=== PATIENT | female | born 1985 | race Caucasian/White ===

== ENCOUNTER 2017-10-26 00:03 | Emergency (ER) | payer SELFPAY ==
[2017-10-26] VITALS (8 sets, daily range): BP systolic 106–134; BP diastolic 68–94; PULSE 83–107; RESP 12–20; TEMP 36.4–37; O2SAT 97–99; BMI 25.9
--- NOTE | 2017-10-26 00:24 | CT_ITS ---
CT head/brain wo con HISTORY: ITS.REASON: siezure ORDERING PHYSICIAN: Guicho Harris MD PATIENT AGE: 32 years COMPARISON: None TECHNIQUE: Axial images obtained without contrast. Brain and bone windows reviewed. FINDINGS: No midline shift, mass effect, intracranial hemorrhage, hydrocephalus, or extra-axial fluid collection is evident. The calvarium has an unremarkable appearance. No mastoid effusion. There is mucosal thickening of the ethmoid sinuses and sphenoid sinus. IMPRESSION: 1. No acute intracranial findings. 2. Sinus disease
[2017-10-26 00:39] LABS: Microscopic, Urine URINE MICROSCOPIC (MICROSCOPIC)
[2017-10-26 00:41] LABS: Appearance,Urine CLEAR (Clear); Bilirubin,Urine Negative (Negative); Blood, Urine Negative (Negative); Color,Urine YELLOW (Yellow); Glucose,Urine (UA) Negative (Negative); Ketones,Urine Negative (Negative); Leukocyte Esterase,Urine Negative (Negative); Nitrate,Urine Negative (Negative); PH,Urine 5.5 (5.0-8.5); Protein,Urine Negative (Negative); Specific Gravity, Urine <= 1.005 (1.005-1.030); Urobilinogen,Urine 0.2 EU/dl (0.2)
[2017-10-26 00:46] LABS: Amorphous Sediment,Urine Trace /lpf; Basophils % 0.5 % (0.1-2.0); Eosinophils # 0.2 K/mm3 (0.0-0.4); Eosinophils % 3.3 % (0.1-12.0); Hematocrit 44.2 % (37.0-47.0); Hemoglobin 13.7 g/dL (12.2-16.2); Lymphocytes # 3.3 K/mm3 (0.7-4.5); Lymphocytes % 51.9 K/mm3 (10-50); Mean Corpuscular Hemoglobin 25.9 pg (27.0-31.2); Mean Corpuscular Volume 83.5 fl (81-99); Mean Platelet Volume 9.6 fl (7.4-10.4); Monocytes # 0.4 K/mm3 (0.1-1.0); Monocytes % 6.8 % (1.7-9.3); Neutrophils # 2.4 K/mm3 (1.8-7.8); Neutrophils % 37.6 % (37.0-80.0); Platelet Count 86 K/mm3 (142-424); Red Cell Distribution Width 13.5 % (11.5-17.5); White Blood Count 6.4 K/mm3 (4.8-10.8)
[2017-10-26 00:48] LABS: Amphetamine/Metha Screen,Urine Negative ng/mL (<1000); Barbiturates Screen,Urine Negative ng/mL (<200); Benzodiazepines Screen,Urine Negative ng/mL (200); Cannabinoid Screen,Urine Negative ng/mL (<50); Cocaine Screen,Urine Negative ng/g (<300); Methadone Screen,Urine Negative ng/mL (<300); Opiate Screen,Urine Negative ng/mL (<300); Phencyclidine Screen,Urine Negative ng/mL (<25)
[2017-10-26 00:50] LABS: MANUAL DIFFERENTIAL MANUAL DIFFERENTIAL (MANUAL DIFF)
[2017-10-26 00:59] LABS: Alanine Aminotransferase 87 U/L (12-78); Albumin/Globulin Ratio 0.9 (1.1-1.8); Alkaline Phosphatase 67 U/L (46-116); Amylase 56 U/L (25-125); Anion Gap 16.3 mEq/L (5-15); Aspartate Amino Transferase 70 U/L (15-37); Bilirubin,Total 0.5 mg/dL (0.2-1.0); Blood Urea Nitrogen 12 mg/dL (7-18); Calcium 8.7 mg/dL (8.5-10.1); Carbon Dioxide 25 mmol/L (21.0-32.0); Chloride 100 mmol/L (98-107); Creatinine Clearance Estimated 91 mL/min (0-300); Creatinine,Serum 0.89 mg/dL (0.55-1.02); Estimated Glomerular Filt Rate 73 ml/min (>60); Ethyl Alcohol 95 mg/dL (0-99); GFR (African American) 88 ML/MIN (>60); Globulin 4.4 gm/dl (1.3-3.2); Glucose 91 mg/dL (74-106); Lipase 98 u/L (73-393); Potassium 3.3 mmoL/L (3.5-5.1); Sodium 138 mmol/L (136-145); Total Protein,Serum 8.4 gm/dL (6.4-8.2)
[2017-10-26 01:18] LABS: Eosinophils % 2 % (0-3); Lymphocytes % 55 % (10-50); Monocytes % 5 % (2-9); Neutrophils % 34 % (42-76); Platelet Estimate Slight Decrease; Total Cells Counted 100
[2017-10-26 01:19] LABS: Hypochromasia 1+; Polychromasia 1+
--- NOTE | 2017-10-26 01:55 | HMH.EDSEIZ ---
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 The time I documented below is in addition to time spent performing reported procedures but includes the following listed in this critical care notation. Medical Decision Making - Medical Records Medical records reviewed: Yes: I reviewed the patient's medical records. Vital Signs: 10/26/17 00:05 10/26/17 00:06 10/26/17 00:35 Temperature 97.6 F Temperature Source Oral Pulse Rate [Right Radial] 95 H 107 H 94 H Respiratory Rate 20 12 Blood Pressure [Right Arm] 128/85 134/94 132/85 Blood Pressure Mean [Right Arm] 99 107 100 Blood Pressure Source [Right Arm] Automatic Cuff Automatic Cuff Automatic Cuff Blood Pressure Position [Right Arm] Supine Sitting Supine 02 Sat by Pulse Oximetry 97 98 98 Oxygen Delivery Method Room Air 10/26/17 01:05 10/26/17 01:12 10/26/17 01:30 Temperature Temperature Source Pulse Rate [Right Radial] 101 H 101 H 83 Respiratory Rate 14 Blood Pressure [Right Arm] 122/82 122/82 106/69 Blood Pressure Mean [Right Arm] 95 95 81 Blood Pressure Source [Right Arm] Automatic Cuff Automatic Cuff Automatic Cuff Blood Pressure Position [Right Arm] Supine Supine Supine 02 Sat by Pulse Oximetry 97 98 97 Oxygen Delivery Method Room Air - Lab Data Lab results reviewed: Yes: I reviewed the patient's lab results. Lab Results 10/26/17 00:30: Urine Color Yellow, Urine Appearance Clear, Urine pH 5.5, Ur Specific [place] <= 1.005, Urine Protein Negative, Urine Glucose (UA) Negative, Urine Ketones Negative, Urine Blood Negative, Urine Nitrate Negative, Urine Bilirubin Negative, Urine Urobilinogen 0.2, Ur Leukocyte Esterase Negative, Amorphous Sediment Trace 10/26/17 00:30: WBC 6.4, RBC 5.30, Hgb 13.7, Hct 44.2, MCV 83.5, MCH 25.9 L, MCHC 31.0 L, RDW 13.5, Plt Count 86 L, MPV 9.6, Neut % (Auto) 37.6, Lymph % (Auto) 51.9 H, [place] % (Auto) 6.8, Eos % (Auto) 3.3, Baso % (Auto) 0.5, Neut # (Auto) 2.4, Lymph # (Auto) 3.3, [place] # (Auto) 0.4, Eos # (Auto) 0.2, Baso # (Auto) 0.0, Total Counted 100, Neutrophils % (Manual) 34 L, Band Neutrophils % 4.0, Lymphocytes % (Manual) 55 H, Monocytes % (Manual) 5, Eosinophils % (Manual) 2, Platelet Estimate Slight decrease, Polychromasia 1+, Hypochromasia 1+ 10/26/17 00:30: Sodium 138, Potassium 3.3 L, Chloride 100, Carbon Dioxide 25, Anion Gap 16.3 H, BUN 12, Creatinine 0.89, Estimated Creat Clear 91, Estimated GFR 73, Est GFR ( Amer) 88, Glucose 91, Calcium 8.7, Total Bilirubin 0.5, AST 70 H, ALT 87 H, Alkaline Phosphatase 67, Total Protein 8.4 H, Albumin 4.0, Globulin 4.4 H, Albumin/Globulin Ratio 0.9 L, Amylase 56, Lipase 98, Plasma/Serum Alcohol 95 10/26/17 00:30: Urine Opiates Screen Negative, Ur Barbituates Screen Negative, Ur Phencyclidine Scrn Negative, Ur Amphetamines Screen Negative, U Methamphetamines Scrn Negative, U Benzodiazepines Scrn Negative, Urine Cocaine Screen Negative, U Marijuana (THC) Screen Negative Result diagrams: 10/26/17 00:30 10/26/17 00:30 Orders (Tests/Meds): ORDERS Category Date Time Status CT head/brain wo con Stat Cat Scan 10/26/17 00:24 Taken - CT Data CT Scan: Head Time Received: 02:[address] Reviewed: Yes: I have viewed the radiologist's interpretation Preliminary Findings: Abnormal (sinusitis) - Aquilino Inquiry Pt receiving controlled subst
--- NOTE | 2017-10-26 02:02 | ED_ITS ---
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 The time I documented below is in addition to time spent performing reported procedures but includes the following listed in this critical care notation. Medical Decision Making - Medical Records Medical records reviewed: Yes: I reviewed the patient's medical records. Vital Signs: 10/26/17 00:05 10/26/17 00:06 10/26/17 00:35 Temperature 97.6 F Temperature Source Oral Pulse Rate [Right Radial] 95 H 107 H 94 H Respiratory Rate 20 12 Blood Pressure [Right Arm] 128/85 134/94 132/85 Blood Pressure Mean [Right Arm] 99 107 100 Blood Pressure Source [Right Arm] Automatic Cuff Automatic Cuff Automatic Cuff Blood Pressure Position [Right Arm] Supine Sitting Supine 02 Sat by Pulse Oximetry 97 98 98 Oxygen Delivery Method Room Air 10/26/17 01:05 10/26/17 01:12 10/26/17 01:30 Temperature Temperature Source Pulse Rate [Right Radial] 101 H 101 H 83 Respiratory Rate 14 Blood Pressure [Right Arm] 122/82 122/82 106/69 Blood Pressure Mean [Right Arm] 95 95 81 Blood Pressure Source [Right Arm] Automatic Cuff Automatic Cuff Automatic Cuff Blood Pressure Position [Right Arm] Supine Supine Supine 02 Sat by Pulse Oximetry 97 98 97 Oxygen Delivery Method Room Air - Lab Data Lab results reviewed: Yes: I reviewed the patient's lab results. Lab Results 10/26/17 00:30: Urine Color Yellow, Urine Appearance Clear, Urine pH 5.5, Ur Specific [place] <= 1.005, Urine Protein Negative, Urine Glucose (UA) Negative, Urine Ketones Negative, Urine Blood Negative, Urine Nitrate Negative, Urine Bilirubin Negative, Urine Urobilinogen 0.2, Ur Leukocyte Esterase Negative, Amorphous Sediment Trace 10/26/17 00:30: WBC 6.4, RBC 5.30, Hgb 13.7, Hct 44.2, MCV 83.5, MCH 25.9 L, MCHC 31.0 L, RDW 13.5, Plt Count 86 L, MPV 9.6, Neut % (Auto) 37.6, Lymph % ( Auto) 51.9 H, [place] % (Auto) 6.8, Eos % (Auto) 3.3, Baso % (Auto) 0.5, Neut # ( Auto) 2.4, Lymph # (Auto) 3.3, [place] # (Auto) 0.4, Eos # (Auto) 0.2, Baso # (Auto ) 0.0, Total Counted 100, Neutrophils % (Manual) 34 L, Band Neutrophils % 4.0, Lymphocytes % (Manual) 55 H, Monocytes % (Manual) 5, Eosinophils % (Manual) 2, Platelet Estimate Slight decrease, Polychromasia 1+, Hypochromasia 1+ 10/26/17 00:30: Sodium 138, Potassium 3.3 L, Chloride 100, Carbon Dioxide 25, Anion Gap 16.3 H, BUN 12, Creatinine 0.89, Estimated Creat Clear 91, Estimated GFR 73, Est GFR ( Amer) 88, Glucose 91, Calcium 8.7, Total Bilirubin 0.5 , AST 70 H, ALT 87 H, Alkaline Phosphatase 67, Total Protein 8.4 H, Albumin 4.0 , Globulin 4.4 H, Albumin/Globulin Ratio 0.9 L, Amylase 56, Lipase 98, Plasma/ Serum Alcohol 95 10/26/17 00:30: Urine Opiates Screen Negative, Ur Barbituates Screen Negative, Ur Phencyclidine Scrn Negative, Ur Amphetamines Screen Negative,
== END 2017-10-26 02:55 | disposition home or self-care (01) ==
PROVIDERS: Emergency Provider Emergency Medicine
DX: G40.909 Epilepsy, unspecified, not intractable, without status epilepticus (principal); F14.10 Cocaine abuse, uncomplicated; F15.10 Other stimulant abuse, uncomplicated; F11.10 Opioid abuse, uncomplicated; Z79.899 Other long term (current) drug therapy; Z91.128 Patient's intentional underdosing of medication regimen for other reason
CPT/HCPCS: 70450; 80053; 80305; 81001; 82150; 83690; 85007; 85025; 96365; 99283

== ENCOUNTER 2018-12-24 13:47 | Emergency (ER) | payer SELFPAY ==
[2018-12-24] VITALS (10 sets, daily range): BP systolic 93–156; BP diastolic 59–96; PULSE 85–97; RESP 18–20; TEMP 36.9–37; O2SAT 90–99; BMI 25.0
--- NOTE | 2018-12-24 14:23 | CT_ITS ---
CT head/brain wo con HISTORY: Multiple seizures ITS.REASON: multiple seizures ORDERING PHYSICIAN: Guicho Grace MD PATIENT AGE: 33 years COMPARISON: 06/23/2018 TECHNIQUE: Axial images obtained without contrast. Brain and bone windows reviewed. All CT scans at the facility use one or more dose reduction, viz: automated exposure control, ma/kV adjustment per patient size (including targeted exams where dose is matched to indication, i.e. head), or iterative reconstruction technique. FINDINGS: No midline shift, mass effect, intracranial hemorrhage, hydrocephalus, or extra-axial fluid collection is evident. The calvarium has an unremarkable appearance. No mastoid effusion. There is mild mucosal thickening of the ethmoid sinuses. IMPRESSION: No acute intracranial findings
--- NOTE | 2018-12-24 14:24 | HMH.EDGENADL ---
ED Disposition Clinical Impression: Recurrent seizures Disposition: Home, Self-Care Condition on Discharge: Good Instructions: Seizure Disorder -- Adult Referrals: Provider,Referral, [Primary Care Provider] - Time of Disposition: 18:02 - Critical Care Critical Care Time: No Attestation: On 12/24/18, the high probability of a clinically significant, sudden or life threatening deterioration of the following system(s) required my full and direct attention, intervention and personal management. The time I documented below is in addition to time spent performing reported procedures but includes the following listed in this critical care notation. Medical Decision Making - Medical Records Medical records reviewed: Yes: I reviewed the patient's medical records. - Aquilino Inquiry Pt receiving controlled substance: No Aquilino was queried for this patient: No Vital Signs: 12/24/18 13:48 12/24/18 14:13 12/24/18 14:16 Temperature 98.5 F Temperature Source Oral Pulse Rate [Left Radial] 97 H 91 H 90 Respiratory Rate 20 Blood Pressure [Right Arm] 139/96 H 132/91 H 156/96 H Blood Pressure Mean [Right Arm] 110 104 116 Blood Pressure Source [Right Arm] Automatic Cuff Automatic Cuff Automatic Cuff Blood Pressure Position [Right Arm] Sitting Sitting Sitting 02 Sat by Pulse Oximetry 94 L 96 98 Oxygen Delivery Method Room Air Room Air Room Air 12/24/18 14:20 12/24/18 15:00 12/24/18 15:45 Temperature Temperature Source Pulse Rate [Left Radial] 93 H 87 87 Respiratory Rate Blood Pressure [Right Arm] 123/90 125/83 114/63 Blood Pressure Mean [Right Arm] 101 97 80 Blood Pressure Source [Right Arm] Automatic Cuff Automatic Cuff Blood Pressure Position [Right Arm] Sitting Sitting 02 Sat by Pulse Oximetry 99 97 92 L Oxygen Delivery Method Room Air Room Air 12/24/18 16:14 12/24/18 17:03 12/24/18 17:57 Temperature Temperature Source Pulse Rate [Left Radial] 87 86 85 Respiratory Rate Blood Pressure [Right Arm] 130/80 117/66 93/59 L Blood Pressure Mean [Right Arm] 96 83 70 Blood Pressure Source [Right Arm] Automatic Cuff Automatic Cuff Blood Pressure Position [Right Arm] Sitting Sitting 02 Sat by Pulse Oximetry 97 91 L 90 L Oxygen Delivery Method Room Air Room Air - Lab Data Lab results reviewed: Yes: I reviewed the patient's lab results. Lab Results 12/24/18 13:58: WBC 6.3, RBC 4.73, Hgb 13.4, Hct 40.8, MCV 86.2, MCH 28.4, MCHC 32.9, RDW 14.5, Plt Count 122 L, MPV 9.9, Neut % (Auto) 46.0, Lymph % (Auto) 45.0, [place] % (Auto) 3.7, Eos % (Auto) 4.5, Baso % (Auto) 0.9, Neut # (Auto) 2.9, Lymph # (Auto) 2.8, [place] # (Auto) 0.2, Eos # (Auto) 0.3, Baso # (Auto) 0.1 12/24/18 13:58: Sodium 138, Potassium 4.2, Chloride 103, Carbon Dioxide 23, Anion Gap 16.2 H, BUN 9, Creatinine 0.64, Estimated Creat Clear 122, Estimated GFR 106, Est GFR ( Amer) 129, Glucose 108 H, Calcium 9.0, Total Bilirubin 0.5, AST 329 H*, ALT 256 H, Alkaline Phosphatase 108, Total Protein 8.1, Albumin 3.6, Globulin 4.5 H, Albumin/Globulin Ratio 0.8 L, Plasma/Serum Alcohol 199 H 12/24/18 13:58: Serum HCG, Qual Negative Result diagrams: 12/24/18 13:58 12/24/18 13:58 Orders (Tests/Meds): ED MEDICATIONS Discontinued Medications Generic Name Dose Route Start Last Admin Trade Name Freq PRN Reason Stop Dose Admin Levetiracetam 1,000 mg/ Sodium 110 mls @ 220 mls/hr 12/24/18 14:30 12/24/18 14:31 Chloride IV 12/24/18 14:59 220 mls/hr ONCE ONE Administration Lorazepam 2 mg 12/24/18 14:27 12/24/18 14:13 Ativan 2mg/Ml Vial IV 12/24/18 14:28 2 mg ONCE ONE Administration Lorazepam 2 mg 12/24/18 14:28 12/24/18 14:20 Ativan 2mg/Ml Vial IV 12/24/18 14:29 2 mg ONCE ONE Administration ORDERS Category Date Time Status UDS [Drug Screen,Urine] Stat Lab 12/24/18 15:20 Received General Adult HPI - General Chief complaint: Seizure Stated complaint: seizure Time Seen by Provider: 0
--- NOTE | 2018-12-24 14:27 | ED_ITS ---
ED Disposition Clinical Impression: Recurrent seizures Disposition: Home, Self-Care Condition on Discharge: Good Instructions: Seizure Disorder -- Adult Referrals: Provider,Referral, [Primary Care Provider] - Time of Disposition: 18:02 - Critical Care Critical Care Time: No Attestation: On 12/24/18, the high probability of a clinically significant, sudden or life threatening deterioration of the following system(s) required my full and direct attention, intervention and personal management. The time I documented below is in addition to time spent performing reported procedures but includes the following listed in this critical care notation. Medical Decision Making - Medical Records Medical records reviewed: Yes: I reviewed the patient's medical records. - Aquilino Inquiry Pt receiving controlled substance: No Aquilino was queried for this patient: No Vital Signs: 12/24/18 13:48 12/24/18 14:13 12/24/18 14:16 Temperature 98.5 F Temperature Source Oral Pulse Rate [Left Radial] 97 H 91 H 90 Respiratory Rate 20 Blood Pressure [Right Arm] 139/96 H 132/91 H 156/96 H Blood Pressure Mean [Right Arm] 110 104 116 Blood Pressure Source [Right Arm] Automatic Cuff Automatic Cuff Automatic Cuff Blood Pressure Position [Right Arm] Sitting Sitting Sitting 02 Sat by Pulse Oximetry 94 L 96 98 Oxygen Delivery Method Room Air Room Air Room Air 12/24/18 14:20 12/24/18 15:00 12/24/18 15:45 Temperature Temperature Source Pulse Rate [Left Radial] 93 H 87 87 Respiratory Rate Blood Pressure [Right Arm] 123/90 125/83 114/63 Blood Pressure Mean [Right Arm] 101 97 80 Blood Pressure Source [Right Arm] Automatic Cuff Automatic Cuff Blood Pressure Position [Right Arm] Sitting Sitting 02 Sat by Pulse Oximetry 99 97 92 L Oxygen Delivery Method Room Air Room Air 12/24/18 16:14 12/24/18 17:03 12/24/18 17:57 Temperature Temperature Source Pulse Rate [Left Radial] 87 86 85 Respiratory Rate Blood Pressure [Right Arm] 130/80 117/66 93/59 L Blood Pressure Mean [Right Arm] 96 83 70 Blood Pressure Source [Right Arm] Automatic Cuff Automatic Cuff Blood Pressure Position [Right Arm] Sitting Sitting 02 Sat by Pulse Oximetry 97 91 L 90 L Oxygen Delivery Method Room Air Room Air - Lab Data Lab results reviewed: Yes: I reviewed the patient's lab results. Lab Results 12/24/18 13:58: WBC 6.3, RBC 4.73, Hgb 13.4, Hct 40.8, MCV 86.2, MCH 28.4, MCHC 32.9, RDW 14.5, Plt Count 122 L, MPV 9.9, Neut % (Auto) 46.0, Lymph % (Auto) 45.0, [place] % (Auto) 3.7, Eos % (Auto) 4.5, Baso % (Auto) 0.9, Neut # (Auto) 2.9, Lymph # (Auto) 2.8, [place] # (Auto) 0.2, Eos # (Auto) 0.3, Baso # (Auto) 0.1 12/24/18 13:58: Sodium 138, Potassium 4.2, Chloride 103, Carbon Dioxide 23, Anion Gap 16.2 H, BUN 9, Creatinine 0.64, Estimated Creat Clear 122, Estimated GFR 106, Est GFR ( Amer) 129, Glucose 108 H, Calcium 9.0, Total Bilirubin 0.5, AST 329 H*, ALT 256 H, Alkaline Phosphatase 108, Total Protein 8.1, Albumin 3.6, Globulin 4.5 H, Albumin/Globulin Ratio 0.8 L, Plasma/Serum Alcohol 199 H 12/24/18 13:58: Serum HCG, Qual Negative Result diagrams: 12/24/18 13:58
[2018-12-24 14:34] LABS: HCG Qualitative, Serum Negative (Negative)
[2018-12-24 14:37] LABS: Basophils # 0.1 K/mm3 (0-0.2); Basophils % 0.9 % (0.1-2.0); Eosinophils # 0.3 K/mm3 (0.0-0.4); Eosinophils % 4.5 % (0.1-12.0); Hematocrit 40.8 % (37.0-47.0); Hemoglobin 13.4 g/dL (12.2-16.2); Lymphocytes # 2.8 K/mm3 (0.7-4.5); Mean Corpuscular HGB Conc 32.9 g/dL (31.8-35.4); Mean Corpuscular Hemoglobin 28.4 pg (27.0-31.2); Mean Corpuscular Volume 86.2 fl (81-99); Mean Platelet Volume 9.9 fl (7.4-10.4); Monocytes # 0.2 K/mm3 (0.1-1.0); Monocytes % 3.7 % (1.7-9.3); Neutrophils # 2.9 K/mm3 (1.8-7.8); Platelet Count 122 K/mm3 (142-424); Red Blood Count 4.73 M/mm3 (4.20-5.40); Red Cell Distribution Width 14.5 % (11.5-17.5); White Blood Count 6.3 K/mm3 (4.8-10.8)
[2018-12-24 15:05] LABS: Alanine Aminotransferase 256 U/L (12-78); Albumin Level 3.6 gm/dL (3.4-5.0); Albumin/Globulin Ratio 0.8 (1.1-1.8); Alkaline Phosphatase 108 U/L (46-116); Anion Gap 16.2 mEq/L (5-15); Aspartate Amino Transferase 329 U/L (15-37); Bilirubin,Total 0.5 mg/dL (0.2-1.0); Blood Urea Nitrogen 9 mg/dL (7-18); Carbon Dioxide 23 mmol/L (21.0-32.0); Chloride 103 mmol/L (98-107); Creatinine Clearance Estimated 122 mL/min (50-200); Creatinine,Serum 0.64 mg/dL (0.55-1.02); Estimated Glomerular Filt Rate 106 ml/min (>60); Ethyl Alcohol 199 mg/dL (0-99); GFR (African American) 129 ML/MIN (>60); Globulin 4.5 gm/dl (1.3-3.2); Glucose 108 mg/dL (74-106); Potassium 4.2 mmoL/L (3.5-5.1); Sodium 138 mmol/L (136-145); Total Protein,Serum 8.1 gm/dL (6.4-8.2)
--- NOTE | 2018-12-24 15:40 | PC.NURSE ---
PT SLEEPING ON STRETCHER AT THIS TIME.
--- NOTE | 2018-12-24 16:08 | PC.NURSE ---
family at bedside
[2018-12-24 17:49] LABS: Amphetamine/Metha Screen,Urine Negative ng/mL (<1000); Barbiturates Screen,Urine Negative ng/mL (<200); Benzodiazepines Screen,Urine Positive ng/mL (<200); Cannabinoid Screen,Urine Negative ng/mL (<50); Cocaine Screen,Urine Negative ng/mL (<300); Methadone Screen,Urine Negative ng/mL (<300); Opiate Screen,Urine Negative ng/mL (<300); Phencyclidine Screen,Urine Negative ng/mL (<25)
--- NOTE | 2018-12-24 18:32 | PC.NURSE ---
1410- NURSES LEFT PT'S ROOM FOLLOWING TRIAGE TO SEND LABS UP THE SHOOT. JACKELYN CALVO WAS SENDING THE LABS UP WHEN JACKELYN STARR LOOKED IN ON PT AND NOTICED SHE WAS NOT IN THERE. PT HAD BEEN LEFT IN THE MEDICAL RESTRAINTS THAT EMS HAD BROUGHT HER IN. RESTRAINTS WERE SECURED AND DOUBLE CHECKED BY BOTH NURSES IN THE ROOM. PT HAD GOTTEN OUT OF HER RESTRAINTS, THEY WERE LEFT LAYING ON THE BED. STAFF BEGAN TO LOOK FOR PT. WHILE CHECKING ED BATHROOMS AND REAR STAIRWELL, A BYSTANDER THAT HAD BEEN WORKING WITH THE [employer] OUTSIDE BEGAN BANGING ON THE BAY DOORS. MYSELF AND PENG RAN TO THE DOORS WHERE WE WERE TOLD THERE WAS A PT HAVING A SEIZURE IN THE GRASS OUTSIDE OF THE OUTPATIENT PICK-UP AREA. MYSELF, PENG, HAYLIE AND FLORENCE (MATERIALS) RAN UP TO THE PT. SHE HAD WENT UP THE BACK STAIRWELL AND HAD A SEIZURE ONCE SHE REACHED THE GRASS. MAINTENANCE GOT A STRETCHER AND STAFF WERE ABLE TO PLACE PT ON IT AND TRANSPORT HER BACK INTO THE ED. PT CONTINUED SEIZING UPON ARRIVING BACK TO ROOM. JACKELYN JAMES ADMINISTERED ATIVAN PER MD VERBAL ORDER. PT'S RESTRAINTS WERE REMOVED PER RUG INSPECTOR, MUKUL BRIZUELA, INSTRUCTIONS. EENDELIA ADVISED THAT IF THERE WERE NO ONE AVAILABLE TO SIT ONE-ON-ONE WITH THE PT THEN THEY WOULD HAVE TO BE RELEASED FROM THEIR MEDICAL RESTRAINTS. NURSE IMMEDIATELY REMOVED PT RESTRAINTS AT THAT TIME.
== END 2018-12-24 18:07 | disposition home or self-care (01) ==
PROVIDERS: Emergency Provider Emergency Medicine
DX: G40.909 Epilepsy, unspecified, not intractable, without status epilepticus (principal); F10.10 Alcohol abuse, uncomplicated; F17.210 Nicotine dependence, cigarettes, uncomplicated
CPT/HCPCS: 70450; 80053; 80305; 84703; 85025; 96365; 96375; 96376; 99284; J1953

== ENCOUNTER 2018-12-25 20:22 | Emergency (ER) | payer SELFPAY ==
[2018-12-25 20:23] VITALS: BP 137/91; PULSE 79; RESP 16; TEMP 37.6; O2SAT 94; BMI 24.4
--- NOTE | 2018-12-25 21:18 | HMH.EDGENADL ---
ED Disposition Clinical Impression: Seizure disorder, Alcohol abuse Disposition: Home, Self-Care Condition on Discharge: Good Instructions: DI for Seizure Disorder -- Adult Referrals: Provider,Referral, [Primary Care Provider] - Time of Disposition: 22:54 - Critical Care Critical Care Time: No Attestation: On 12/25/18, the high probability of a clinically significant, sudden or life threatening deterioration of the following system(s) required my full and direct attention, intervention and personal management. The time I documented below is in addition to time spent performing reported procedures but includes the following listed in this critical care notation. Medical Decision Making - Medical Records Medical records reviewed: Yes: I reviewed the patient's medical records. - Aquilino Inquiry Pt receiving controlled substance: No Aquilino was queried for this patient: No Vital Signs: 12/25/18 20:23 12/25/18 21:50 12/25/18 22:22 Temperature 99.7 F H 98.2 F Temperature Source Oral Temporal Artery Scan Pulse Rate [Right Brachial] 79 73 75 Respiratory Rate 16 16 16 Blood Pressure [Right Arm] 137/91 H Blood Pressure Mean [Right Arm] 106 Blood Pressure Source [Right Arm] Automatic Cuff Blood Pressure Position [Right Arm] Sitting 02 Sat by Pulse Oximetry 94 L 98 98 Oxygen Delivery Method Room Air Room Air Room Air - Lab Data Lab results reviewed: Yes: I reviewed the patient's lab results. Lab Results 12/25/18 21:10: WBC 6.1, RBC 4.85, Hgb 13.9, Hct 41.8, MCV 86.2, MCH 28.6, MCHC 33.2, RDW 14.3, Plt Count 108 L, MPV 10.8 H, Neut % (Auto) 46.5, Lymph % (Auto) 42.4, [place] % (Auto) 4.8, Eos % (Auto) 5.3, Baso % (Auto) 1.0, Neut # (Auto) 2.8, Lymph # (Auto) 2.6, [place] # (Auto) 0.3, Eos # (Auto) 0.3, Baso # (Auto) 0.1 12/25/18 21:10: Sodium 138, Potassium 4.4, Chloride 103, Carbon Dioxide 28 D, Anion Gap 11.4, BUN 9, Creatinine 0.67, Estimated Creat Clear 125, Estimated GFR 101, Est GFR ( Amer) 122, Glucose 89, Calcium 9.1, Total Bilirubin 0.5, AST 293 H, ALT 228 H, Alkaline Phosphatase 114, Total Protein 8.1, Albumin 3.6, Globulin 4.5 H, Albumin/Globulin Ratio 0.8 L Result diagrams: 12/25/18 21:10 12/25/18 21:10 Orders (Tests/Meds): ED MEDICATIONS Discontinued Medications Generic Name Dose Route Start Last Admin Trade Name Luis Alberto PRN Reason Stop Dose Admin Levetiracetam 1,000 mg/ Sodium 110 mls @ 220 mls/hr 12/25/18 21:03 12/25/18 21:32 Chloride IV 12/25/18 21:04 220 mls/hr ONCE ONE Administration Lorazepam 1 mg 12/25/18 21:03 12/25/18 21:32 Ativan 2mg/Ml Vial IV 12/25/18 21:04 1 mg ONCE ONE Administration Lorazepam 2 mg 12/25/18 22:10 Ativan 2mg/Ml Vial IM 12/25/18 22:11 ONCE ONE Lorazepam 2 mg 12/25/18 22:25 12/25/18 22:27 Ativan 2mg/Ml Vial IV 12/25/18 22:26 2 mg ONCE ONE Administration ORDERS Category Date Time Status Levetiracetam (Keppra) Routine Lab 12/25/18 21:10 Received General Adult HPI - General Chief complaint: Seizure Stated complaint: seizure Time Seen by Provider: 12/25/18 21:18 Mode of Arrival: EMS Source of Information: Patient, EMS Limitations: No Limitations Description of Symptoms (Recalled from ER Triage Doc. by RN): Reported pateint was having a seizure, EMS arrived and pateint was postictal. Pt has also been drinking, advises shes had a bout 4 shots of vodka - History of Present Illness HPI narrative: Here yesterday, same situation, drinking and ? non-compliance with anti-seizure meds. More alert and vocal today, stating that her girlfriend took my meds and would not dose her with her Keppra - Related Data Home Medications Medication Instructions Recorded Confirmed clonazePAM [Clonazepam] 0.5 mg PO BID 10/26/17 06/23/18 levETIRAcetam [Keppra 500mg tablet] 325 mg PO BID 10/26/17 06/23/18 Melatonin 5 mg PO DAILY 06/23/18 06/23/18 Metoprolol Robert/Hydrochlorothiaz 1 each PO BID 06/23/18 1
--- NOTE | 2018-12-25 21:22 | ED_ITS ---
ED Disposition Clinical Impression: Seizure disorder, Alcohol abuse Disposition: Home, Self-Care Condition on Discharge: Good Instructions: DI for Seizure Disorder -- Adult Referrals: Provider,Referral, [Primary Care Provider] - Time of Disposition: 22:54 - Critical Care Critical Care Time: No Attestation: On 12/25/18, the high probability of a clinically significant, sudden or life threatening deterioration of the following system(s) required my full and direct attention, intervention and personal management. The time I documented below is in addition to time spent performing reported procedures but includes the following listed in this critical care notation. Medical Decision Making - Medical Records Medical records reviewed: Yes: I reviewed the patient's medical records. - Aquilino Inquiry Pt receiving controlled substance: No Aquilino was queried for this patient: No Vital Signs: 12/25/18 20:23 12/25/18 21:50 12/25/18 22:22 Temperature 99.7 F H 98.2 F Temperature Source Oral Temporal Artery Scan Pulse Rate [Right Brachial] 79 73 75 Respiratory Rate 16 16 16 Blood Pressure [Right Arm] 137/91 H Blood Pressure Mean [Right Arm] 106 Blood Pressure Source [Right Arm] Automatic Cuff Blood Pressure Position [Right Arm] Sitting 02 Sat by Pulse Oximetry 94 L 98 98 Oxygen Delivery Method Room Air Room Air Room Air - Lab Data Lab results reviewed: Yes: I reviewed the patient's lab results. Lab Results 12/25/18 21:10: WBC 6.1, RBC 4.85, Hgb 13.9, Hct 41.8, MCV 86.2, MCH 28.6, MCHC 33.2, RDW 14.3, Plt Count 108 L, MPV 10.8 H, Neut % (Auto) 46.5, Lymph % (Auto) 42.4, [place] % (Auto) 4.8, Eos % (Auto) 5.3, Baso % (Auto) 1.0, Neut # (Auto) 2.8, Lymph # (Auto) 2.6, [place] # (Auto) 0.3, Eos # (Auto) 0.3, Baso # (Auto) 0.1 12/25/18 21:10: Sodium 138, Potassium 4.4, Chloride 103, Carbon Dioxide 28 D, Anion Gap 11.4, BUN 9, Creatinine 0.67, Estimated Creat Clear 125, Estimated GFR 101, Est GFR ( Amer) 122, Glucose 89, Calcium 9.1, Total Bilirubin 0.5, AST 293 H, ALT 228 H, Alkaline Phosphatase 114, Total Protein 8.1, Albumin 3.6, Globulin 4.5 H, Albumin/Globulin Ratio 0.8 L Result diagrams: 12/25/18 21:10 12/25/18 21:10 Orders (Tests/Meds): ED MEDICATIONS Discontinued Medications Generic Name Dose Route Start Last Admin Trade Name Freq PRN Reason Stop Dose Admin Levetiracetam 1,000 mg/ Sodium 110 mls @ 220 mls/hr 12/25/18 21:03 12/25/18 21:32 Chloride IV 12/25/18 21:04 220 mls/hr ONCE ONE Administration Lorazepam 1 mg 12/25/18 21:03 12/25/18 21:32 Ativan 2mg/Ml Vial IV 12/25/18 21:04 1 mg ONCE ONE Administration Lorazepam 2 mg 12/25/18 22:10 Ativan 2mg/Ml Vial IM 12/25/18 22:11 ONCE ONE Lorazepam 2 mg 12/25/18 22:25 12/25/18 22:27 Ativan 2mg/Ml Vial IV 12/25/18 22:26 2 mg ONCE ONE Administration ORDERS Category Date Time Status Levetiracetam (Keppra) Routine Lab 12/25/18 21:10 Received General Adult HPI - General Chief complaint: Seizure Stated complaint: seizure Time Seen by Provider: 12/25/18
--- NOTE | 2018-12-25 21:33 | PC.NURSE ---
Patient was moved to room 5 and seizure pads were placed. Patient began to have a seizure which lasted approx. 20 secs. Give 2mg of ativan.
[2018-12-25 21:50] VITALS: PULSE 73; RESP 16; O2SAT 98
--- NOTE | 2018-12-25 21:57 | PC.NURSE ---
Patient resting comfortably at this time
[2018-12-25 22:21] LABS: Basophils # 0.1 K/mm3 (0-0.2); Eosinophils # 0.3 K/mm3 (0.0-0.4); Eosinophils % 5.3 % (0.1-12.0); Hematocrit 41.8 % (37.0-47.0); Hemoglobin 13.9 g/dL (12.2-16.2); Lymphocytes # 2.6 K/mm3 (0.7-4.5); Lymphocytes % 42.4 % (10-50); Mean Corpuscular HGB Conc 33.2 g/dL (31.8-35.4); Mean Corpuscular Hemoglobin 28.6 pg (27.0-31.2); Mean Corpuscular Volume 86.2 fl (81-99); Mean Platelet Volume 10.8 fl (7.4-10.4); Monocytes # 0.3 K/mm3 (0.1-1.0); Monocytes % 4.8 % (1.7-9.3); Neutrophils # 2.8 K/mm3 (1.8-7.8); Neutrophils % 46.5 % (37.0-80.0); Platelet Count 108 K/mm3 (142-424); Red Blood Count 4.85 M/mm3 (4.20-5.40); Red Cell Distribution Width 14.3 % (11.5-17.5); White Blood Count 6.1 K/mm3 (4.8-10.8)
[2018-12-25 22:22] VITALS: PULSE 75; RESP 16; TEMP 36.8; O2SAT 98
[2018-12-25 22:28] LABS: Alanine Aminotransferase 228 U/L (12-78); Albumin Level 3.6 gm/dL (3.4-5.0); Albumin/Globulin Ratio 0.8 (1.1-1.8); Alkaline Phosphatase 114 U/L (46-116); Anion Gap 11.4 mEq/L (5-15); Aspartate Amino Transferase 293 U/L (15-37); Bilirubin,Total 0.5 mg/dL (0.2-1.0); Blood Urea Nitrogen 9 mg/dL (7-18); Calcium 9.1 mg/dL (8.5-10.1); Carbon Dioxide 28 mmol/L (21.0-32.0); Chloride 103 mmol/L (98-107); Creatinine Clearance Estimated 125 mL/min (50-200); Creatinine,Serum 0.67 mg/dL (0.55-1.02); Estimated Glomerular Filt Rate 101 ml/min (>60); GFR (African American) 122 ML/MIN (>60); Globulin 4.5 gm/dl (1.3-3.2); Glucose 89 mg/dL (74-106); Potassium 4.4 mmoL/L (3.5-5.1); Sodium 138 mmol/L (136-145); Total Protein,Serum 8.1 gm/dL (6.4-8.2)
[2018-12-25 23:05] VITALS: BP 118/64; PULSE 75; RESP 16; TEMP 36.7; O2SAT 98
[2018-12-30 13:53] LABS: Levetiracetam (Keppra) 25.2 ug/mL (10.0-40.0)
[2019-01-19 13:03] LABS: Ethanol U, Quan POSITIVE
== END 2018-12-25 23:06 | disposition home or self-care (01) ==
PROVIDERS: Emergency Provider Emergency Medicine
DX: R56.9 Unspecified convulsions (principal); R10.10 Upper abdominal pain, unspecified; Z51.81 Encounter for therapeutic drug level monitoring; Z88.8 Allergy status to other drugs, medicaments and biological substances; F17.210 Nicotine dependence, cigarettes, uncomplicated
CPT/HCPCS: 80053; 80177; 80307; 85025; 96365; 96375; 96376; 99283; J1953